=== PATIENT | male | born 1995 | race Caucasian/White ===

== ENCOUNTER 2017-02-23 20:54 | Emergency (ER) | payer OTHER ==
[2017-02-23] MEDS ORDERED: PROPARACAINE 0.5% OPHTH DROPS 15 ML BTL LEFT EYE STA (21:01)
[2017-02-23 21:05] VITALS: BP 146/78; PULSE 76; RESP 18; TEMP 96
--- NOTE | 2017-02-23 21:24 | ED ---
General Adult HPI - General Chief complaint: Eye Problems Stated complaint: FB Eye Time Seen by Provider: 02/23/17 21:01 Source: patient, RN notes reviewed Mode of arrival: ambulatory Limitations: no limitations - History of Present Illness Initial comments: Patient is a 21-year-old male who presents emergency room today with chief complaint of left eye irritation times one day. He does admit to being a contact wearer. He does admit that yesterday began feeling some discomfort to the left eye in the upper lid area. He denies any other complaints or associated symptoms. Denies any injury or trauma. Patient denies any recent fever, chills, shortness of breath, chest pain, back pain, abdominal pain, nausea or vomiting, numbness or tingling, dysuria or hematuria, constipation or diarrhea, headaches or visual changes, or any other complaints. - Related Data Home Medications Medication Instructions Recorded Confirmed Citalopram Hydrobromide [CeleXA] 20 mg PO DAILY 09/23/15 09/23/15 Previous Rx's Medication Instructions Recorded Metoclopramide HCl [Reglan] 10 mg PO Q6HR PRN #5 day 09/23/15 Ofloxacin 0.3% Ophth Soln [Ocuflox 1 - 2 drops BOTH EYES QID 7 Days 02/23/17 Ophth Soln] Allergies Allergy/AdvReac Type Severity Reaction Status Date / Time lamotrigine [From Lamictal] Allergy Rash/Hives Verified 02/23/17 21:05 Review of Systems ROS Statement: Those systems with pertinent positive or pertinent negative responses have been documented in the HPI. ROS Other: All systems not noted in ROS Statement are negative. Past Medical History Additional Past Medical History / Comment(s): GASTROENTERITIS, MIGRAINES History of Any Multi-Drug Resistant Organisms: None Reported Additional Past Surgical History / Comment(s): EGD Past Psychological History: Depression Smoking Status: Former smoker Past Alcohol Use History: None Reported Past Drug Use History: Marijuana General Exam - General Exam Comments Initial Comments: General: The patient is awake and alert, in no distress, and does not appear acutely ill. Eye: Pupils are equal, round and reactive to light, extra-ocular movements are intact. No nystagmus. There is normal conjunctiva bilaterally. No signs of icterus. Ears, nose, mouth and throat: There are moist mucous membranes and no oral lesions. Neck: The neck is supple, there is no tenderness or JVD. Cardiovascular: There is a regular rate and rhythm. No murmur, rub or gallop is appreciated. Respiratory: Lungs are clear to auscultation, respirations are non-labored, breath sounds are equal. No wheezes, stridor, rales, or rhonchi. Musculoskeletal: Normal ROM, no tenderness. Strength 5/5. Sensation intact. Pulses equal bilaterally 2+. Neurological: A&O x 3. CN II-XII intact, There are no obvious motor or sensory deficits. Coordination appears grossly intact. Speech is normal. Skin: Skin is warm and dry and no rashes or lesions are noted. Psychiatric: Cooperative, appropriate mood & affect, normal judgment. Limitations: no limitations Course Vital Signs 02/23/17 21:02 Temperature 96.0 F L Pulse Rate 76 Respiratory 18 Rate Blood Pressure 146/78 O2 Sat by Pulse 98 Oximetry Procedures - Procedures Initial comment: Patient's left eye was anesthetized locally with proparacaine which didn't relieve his symptoms. Was stained with fluorescein checked there is a small corneal abrasion at the 12 o'clock position. Lids everted showing no foreign bodies. Patient's left eye was then checked with slit lamp revealing seen corneal defect. Results discussed with the patient. Medical Decision Making - Medical Decision Making Patient will be started on antibiotic drops. He is advised to follow-up with ophthalmology over the next 2 days if symptoms have not completely resolved. Advised return here to the emergency room for any symptoms increase or worsen or for any other concerns. Disposition Clinical Impression: Corneal abrasion Disposition: HOME SELF-CARE Condition: Good Additional Instructions: Please use Tylenol/ibuprofen for pain as needed. Please use antibiotic drops as prescribed and artificial tears without preservative as needed for comfort. Please follow-up with ophthalmology over the next 2 days if symptoms not completely resolved. Please return to emergency room for any other concerns. Please do not wear contacts until all symptoms have completely resolved. Prescriptions: Ofloxacin 0.3% Ophth Soln [Ocuflox Ophth Soln] 1 - 2 drops BOTH EYES QID 7 Days Referrals: Arslan Antony MD [Primary Care Provider] - 1-2 days Babak Porras MD [STAFF PHYSICIAN] - 1-2 days Time of Disposition: 21:22
== END 2017-02-23 21:40 | disposition home or self-care (01) ==
LOC: EC 20:54
DX: S05.02XA Injury of conjunctiva and corneal abrasion without foreign body, left eye, initial encounter (principal); X58.XXXA Exposure to other specified factors, initial encounter; F32.9 Major depressive disorder, single episode, unspecified; Z88.8 Allergy status to other drugs, medicaments and biological substances; Z79.899 Other long term (current) drug therapy; Z87.891 Personal history of nicotine dependence
CPT/HCPCS: 99283

== ENCOUNTER 2020-03-15 13:22 | Emergency (ER) | payer OTHER ==
[2020-03-15 13:29] VITALS: RESP 18
--- NOTE | 2020-03-15 14:02 | ED ---
General Adult HPI - General Chief complaint: Chest Pain Stated complaint: chest pain Time Seen by Provider: 03/15/20 13:25 Source: patient, RN notes reviewed, old records reviewed Mode of arrival: wheelchair Limitations: no limitations - History of Present Illness Initial comments: This is a 24-year-old male who presents emergency department who complains of anterior chest pain with deep inspiration only. Patient denies any shortness of breath or difficulty breathing. Patient denies any fever chills or cough. Patient denies any abdominal pain. Patient states he thought it might be heartburn but he took a bunch of an acidosis and it did not help. Patient states he lies still doesn't hurt if he doesn't take a breath doesn't hurt. Patient denies any injury or trauma that he knows of. Patient denies any back pain. Patient denies any lightheadedness or dizziness. Patient denies any swelling to legs or calf tenderness per patient states he does gape and occasionally smokes - Related Data Home Medications Medication Instructions Recorded Confirmed Citalopram Hydrobromide [CeleXA] 20 mg PO DAILY 09/23/15 09/23/15 Previous Rx's Medication Instructions Recorded Metoclopramide HCl [Reglan] 10 mg PO Q6HR PRN #5 day 09/23/15 Ofloxacin 0.3% Ophth Soln [Ocuflox 1 - 2 drops BOTH EYES QID 7 Days 02/23/17 Ophth Soln] ml Ibuprofen [Motrin] 600 mg PO Q6HR PRN #20 tab 03/15/20 Allergies Allergy/AdvReac Type Severity Reaction Status Date / Time lamotrigine [From Lamictal] Allergy Rash/Hives Verified 03/15/20 13:29 Review of Systems ROS Statement: Those systems with pertinent positive or pertinent negative responses have been documented in the HPI. ROS Other: All systems not noted in ROS Statement are negative. Past Medical History Additional Past Medical History / Comment(s): GASTROENTERITIS, MIGRAINES History of Any Multi-Drug Resistant Organisms: None Reported Additional Past Surgical History / Comment(s): EGD Past Psychological History: Depression, PTSD Smoking Status: Current every day smoker Past Alcohol Use History: None Reported Past Drug Use History: Marijuana General Exam - General Exam Comments Initial Comments: GENERAL: Patient is well-developed and well-nourished. Patient is nontoxic and well- hydrated and is in mild distress. ENT: Neck is soft and supple. No significant lymphadenopathy is noted. Oropharynx is clear. Moist mucous membranes. Neck has full range of motion without eliciting any pain. EYES: The sclera were anicteric and conjunctiva were pink and moist. Extraocular movements were intact and pupils were equal round and reactive to light. Eyelids were unremarkable. PULMONARY: Unlabored respirations. Good breath sounds bilaterally. No audible rales rhonchi or wheezing was noted. CARDIOVASCULAR: There is a regular rate and rhythm without any murmurs gallops or rubs. ABDOMEN: Soft and nontender with normal bowel sounds. SKIN: Skin is clear with no lesions or rashes and otherwise unremarkable. NEUROLOGIC: Patient is alert and oriented x3. Cranial nerves II through XII are grossly intact. Motor and sensory are also intact. Normal speech, volume and content. Symmetrical smile. MUSCULOSKELETAL: Normal extremities with adequate strength and full range of motion. LYMPHATICS: No significant lymphadenopathy is noted PSYCHIATRIC: Normal psychiatric evaluation. Limitations: no limitations Course Vital Signs 03/15/20 13:25 Temperature 98.6 F Pulse Rate 84 Respiratory 18 Rate Blood Pressure 121/86 O2 Sat by Pulse 97 Oximetry Medical Decision Making - Medical Decision Making EKG shows normal sinus rhythm at 66 bpm MD interval 136 QRS is under 2 QT interval 380 QTC is 398. Patient's EKG shows no ST segment elevation or depression. Chest x-ray shows no acute abnormality Patient was given Toradol in the emergency department Disposition Clinical Impression: Pleuritic chest pain Disposition: HOME SELF-CARE Condition: Good Instructions (If sedation given, give patient instructions): Pleurisy (ED) Prescriptions: Ibuprofen [Motrin] 600 mg PO Q6HR PRN #20 tab PRN Reason: For pain Is patient prescribed a controlled substance at d/c from ED?: No Referrals: Deangelo Villanueva Jr, [Primary Care Provider] - 1-2 days Time of Disposition: 14:24
[2020-03-15] MEDS ORDERED: KETOROLAC 30 MG/ML 1 ML VIAL IM STA (14:11)
--- NOTE | 2020-03-15 14:33 | XR ---
EXAMINATION TYPE: XR chest 2V DATE OF EXAM ORDERED: 03/15/2020 HISTORY: Difficulty breathing . REFERENCE: None. FINDINGS: The lungs are clear. Pleural spaces are clear. Heart size is normal. IMPRESSION: NORMAL CHEST.
[2020-03-15 15:21] VITALS: BP 118/62; PULSE 78; TEMP 98.2
== END 2020-03-15 15:05 | disposition home or self-care (01) ==
LOC: EC 13:22
DX: R07.81 Pleurodynia (principal); F17.200 Nicotine dependence, unspecified, uncomplicated; F32.9 Major depressive disorder, single episode, unspecified; F43.10 Post-traumatic stress disorder, unspecified; Z88.8 Allergy status to other drugs, medicaments and biological substances
CPT/HCPCS: 99284; 96372; 93005; 71046; J1885

== ENCOUNTER → 2020-03-20 | Outpatient (CLI) | payer OTHER ==
--- NOTE | 2020-03-20 09:59 | US ---
EXAMINATION TYPE: US gallbladder DATE OF EXAM: 03/20/2020 COMPARISON: CT 2015. CLINICAL HISTORY: R10.13 EPIGASTRIC PAIN and RUQ pain after meals and beverages x 1 week with decreas ing symptoms with medication. EXAM MEASUREMENTS: Liver Length: 15.7 cm Gallbladder Wall: 0.26cm contracted wall CBD: 0.2 cm Right Kidney: 10.5 x 4.8 x 3.5 cm Pancreas: wnl Liver: wnl Gallbladder: contracted appearance in NPO status Evidence for sonographic Dia's sign: no CBD: wnl Right Kidney: wnl IMPRESSION: Contracted gallbladder without intraluminal gallstones or secondary ultrasound evidence f or acute cholecystitis.
== END | disposition home or self-care (01) ==
LOC: RADUSWWP 09:01
PROVIDERS: ATTEND Family Medicine
DX: K82.0 Obstruction of gallbladder (principal)
CPT/HCPCS: 76705

== ENCOUNTER → 2020-05-22 | Outpatient (CLI) | payer OTHER ==
[2020-05-22 16:28] LABS: Basophils # (A) 0.1 k/uL (0-0.2); Basophils % (A) 1 %; Eosinophils # (A) 0.1 k/uL (0-0.7); Eosinophils % (A) 2 %; HGB 14.9 gm/dL (13.0-17.5); Lymphocytes # (A) 1.7 k/uL (1.0-4.8); Lymphocytes % (A) 26 %; MCHC 32.5 g/dL (31.0-37.0); MCV 95.5 fL (80.0-100.0); Mean Platelet Volume 7.1; Monocytes # (A) 0.4 k/uL (0-1.0); Monocytes % (A) 6 %; Neutrophils # (A) 4.1 k/uL (1.3-7.7); Neutrophils % (A) 63 %; Platelet Count 231 k/uL (150-450); RBC 4.82 m/uL (4.30-5.90); RDW 12.4 % (11.5-15.5); WBC 6.5 k/uL (3.8-10.6)
[2020-05-23 07:16] LABS: ALT 21 U/L (10-49); AST 26 U/L (14-35); African American GFR (CKD) 145.9 (60.0-200.0); Albumin/Globulin Ratio 2.13 (1.60-3.17); Alkaline Phosphatase 61 U/L (41-126); Carbon Dioxide 23.6 mmol/L (21.6-31.8); Chloride 105 mmol/L (96-109); Cholesterol 99 mg/dL (0-200); Globulin 2.3 g/dL (1.6-3.3); Glucose 89 mg/dL (70-110); Non-African American GFR(CKD) 125.9 (60.0-200.0); Potassium 4.2 mmol/L (3.5-5.5); Sodium 142 mmol/L (135-145); Total Bilirubin 0.5 mg/dL (0.3-1.2); Total Protein 7.2 g/dL (6.2-8.2); Triglycerides <50.0 mg/dL (0.0-149.0)
== END | disposition home or self-care (01) ==
LOC: LABWHC1 15:36
PROVIDERS: ATTEND Nurse Practitioner Family
DX: Z00.00 Encounter for general adult medical examination without abnormal findings (principal); E55.9 Vitamin D deficiency, unspecified; R53.83 Other fatigue
CPT/HCPCS: 36415; 80053; 80061; 82306; 84439; 84443; 85025

== ENCOUNTER → 2020-10-14 | Outpatient (CLI) | payer OTHER ==
[2020-10-14 23:39] LABS: Basophils # (A) 0.03 X 10*3/uL (0.00-0.10); Basophils % (A) 0.6 %; Eosinophils # (A) 0.03 X 10*3/uL (0.04-0.35); Eosinophils % (A) 0.6 %; HCT 45.1 % (39.6-50.0); HGB 14.6 g/dL (13.0-17.0); Lymphocytes # (A) 1.21 X 10*3/uL (0.90-5.00); Lymphocytes % (A) 25.5 %; MCHC 32.4 g/dL (32.0-37.0); MCV 92.8 fL (80.0-97.0); Mean Platelet Volume 10.4 fL (9.5-12.2); Monocytes # (A) 0.41 X 10*3/uL (0.20-1.00); Monocytes % (A) 8.6 %; Neutrophils # (A) 3.06 X 10*3/uL (1.80-7.70); Neutrophils % (A) 64.5 %; Platelet Count 257 X 10*3/uL (140-440); RBC 4.86 X 10*6/uL (4.40-5.60); RDW 12.1 % (11.5-14.5); WBC 4.75 X 10*3/uL (4.50-10.00)
[2020-10-15 04:55] LABS: African American GFR (CKD) 138.1 (60.0-200.0); Albumin 5.3 g/dL (3.80-4.90); Albumin/Globulin Ratio 2.79 (1.60-3.17); Anion Gap 12.7 mmol/L (4.00-12.00); BUN/Creat Ratio 11.11 Ratio (12.00-20.00); Carbon Dioxide 25.3 mmol/L (21.6-31.8); Globulin 1.9 g/dL (1.6-3.3); Non-African American GFR(CKD) 119.1 (60.0-200.0); Potassium 4.3 mmol/L (3.5-5.5); Total Bilirubin 1.2 mg/dL (0.2-1.2); Total Protein 7.2 g/dL (6.2-8.2)
== END | disposition home or self-care (01) ==
LOC: LABWHC1 15:18
PROVIDERS: ATTEND Nurse Practitioner Acute Care
DX: R42 Dizziness and giddiness (principal); Z51.81 Encounter for therapeutic drug level monitoring
CPT/HCPCS: 36415; 80053; 82306; 82607; 84207; 84439; 84443; 84481; 85025